=== PATIENT | male | born 1995 | race Caucasian/White ===

== ENCOUNTER 2017-05-22 23:59 | Emergency (ER) | payer BC ==
[~2017-05-22 23:59] MED LIST: LOR5/325 PO; NO ROUTINE MEDS
--- NOTE | 2017-05-23 00:05 | ER Report ---
History and Physical Time Seen By MD: 00:00 Hx. of Stated Complaint: Patient is drunk HPI/ROS CHIEF COMPLAINT: alcohol intoxication, prison clearance. HISTORY OF PRESENT ILLNESS: The patient is a 22 year old male. Drinking tonight and admits to drinking too much. He has no health problems. No current pain or injuries. Police did not have any concerns about injuries or problems. Simple prison clearance. The patient is okay with me doing a quick exam. He has no current concerns, says that he just drank too much. Report that he was trying to enter the wrong house. Allergies: Coded Allergies: No Known Drug Allergies (Verified , 12/01/10) Home Meds Discontinued Reported Medications Acetaminophen/Hydrocodone (Lortab 5/325 Mg) 5 Mg/325 Mg Tab, 1 - 2 TAB PO Q6H, # 20 0 Refills 12/01/10 [No Routine Meds] No Conflict Check, 0 Refills 12/01/10 Reviewed Nurses Notes: Yes Hx Smoking: No Constitutional Vital Sign - Last 24 Hours 05/23/17 00:00 Temp 97.9 Pulse 101 Resp 18 Pulse Ox 91 O2 Delivery Room Air Physical Exam General Appearance: Alert, intoxicated, but able to converse. Slurring speech. Eyes: Pupils equal and round with some scleral injection. ENT: Normal oral mucosa. Moist mucous membranes. Neck: Neck is supple and non tender. Respiratory: Chest is non tender, lungs are clear to auscultation. Cardiac: regular rate and rhythm Gastrointestinal: Abdomen is soft and non tender, no masses, bowel sounds normal. Musculoskeletal: Extremities have full range of motion. Non tender over back, neck and extremities. Skin: No rashes or lesions. DIFFERENTIAL DIAGNOSIS: After history and physical exam differential diagnosis was considered for alcohol intoxication. Medical Decision Making ED Course/Re-evaluation ED Course Based on evaluation, uncomplicated alcohol intoxication. No problems and can be discharged to prison. Decision to Disposition Date: May 23, 2017 Decision to Disposition Time: 00:08 Depart Departure Latest Vital Signs Vital Signs Date Time Temp Pulse Resp B/P (MAP) Pulse Ox O2 Delivery O2 Flow Rate FiO2 05/23/17 00:00 97.9 101 18 91 Room Air Impression: Primary Impression: Alcohol intoxication Condition: Improved Disposition: [facility] TO SENIOR CARE/CORRECTIONAL F Referrals: WENDY PFEIFFER (PCP) New Scripts No Active Prescriptions or Reported Meds Patient Instructions: Alcohol Intoxication (ED) Problem Qualifiers Primary Impression: Alcohol intoxication Complication of substance-induced condition: uncomplicated Qualified Codes: F10.920 - Alcohol use, unspecified with intoxication, uncomplicated RODNEY BAUER MD May 23, 2017 00:05
== END 2017-05-23 00:13 ==
LOC: ER 23:59
DX: F10.920 Alcohol use, unspecified with intoxication, uncomplicated (principal)
CPT/HCPCS: 99281